=== PATIENT | male | born 1950 | race American Indian/Alaskan Native ===

== ENCOUNTER 2019-03-25 06:53 | Day surgery (SDC) | payer OTHER ==
[~2019-03-25 06:53] MED LIST: TETRACAINE 0.5% OS SCH
[2019-03-25] MEDS ORDERED: NACL 0.9% 500 ML 500 ML IV SCH (08:15)
[2019-03-25] MEDS: VIGAMOX OS SCH ×3 (08:20→08:30)
[2019-03-25] MEDS: AK-Dilate OS SCH ×3 (08:20→08:30)
[2019-03-25] MEDS: MYDRIACYL OS SCH ×3 (08:20→08:30)
--- NOTE | 2019-03-25 08:29 | Anesthesia Day of Surgery ---
Anesthesia Day of Surgery - Day of Surgery Patient Examined: Yes Patient H&P Reviewed: Yes Patient is NPO: Yes Beta Blockers: Yes
[2019-03-25] MEDS ORDERED: HumuLIN R IV ONE (08:30)
--- NOTE | 2019-03-25 08:30 | Anesthesia Consultation ---
Anesthesia Consult and Med Hx - Airway Anesthetic Teeth Evaluation: Poor (missing ) ROM Head & Neck: Adequate Mental/Hyoid Distance: Adequate Mallampati Class: Class III Intubation Access Assessment: Good - Pulmonary Exam CTA: Yes - Cardiac Exam Cardiac Exam: No Murmur - Pre-Operative Health Status ASA Pre-Surgery Classification: ASA3 Proposed Anesthetic Plan: MAC - Pulmonary Hx Smoking: Yes (SINCE AGE 23 SOCIALLY, QUIT 2009) COPD: Yes (RESCUE INHALER) - Cardiovascular System Hx Hypertension: Yes (1999) Hx Coronary Artery Disease: Yes (1999) Hx Angina: No Hx Percutaneous Transluminal Coronary Angioplasty (PTCA): Yes Hx Internal Defibrillator: Yes - Central Nervous System Hx Psychiatric Problems: Yes - Gastrointestinal Hx Gastroesophageal Reflux Disease: Yes - Endocrine Hx Non-Insulin Dependent Diabetes: Yes - Other Systems Hx Alcohol Use: No Hx Substance Use: No Hx Cancer: No Hx Obesity: Yes
[2019-03-25] MEDS ORDERED: HumuLIN R ONE (08:35)
[2019-03-25] MEDS ORDERED: VERSED ONE ×2 (09:06→09:07)
[2019-03-25] MEDS ORDERED: SUBLIMAZE ONE (09:06)
[2019-03-25] MEDS ORDERED: DIAMOX PO NR (09:55)
--- NOTE | 2019-03-25 09:56 | Operative Report ---
Operative Report Operative Report: PATIENT'S NAME: DATE OF : DATE OF SURGERY: 03/25/2019 PREOPERATIVE DIAGNOSIS: Cataract left eye POSTOPERATIVE DIAGNOSIS: Same OPERATIVE PROCEDURE: Phacoemulsification with intraocular lens implantation, left eye SURGEON: Claudia Garcia M.D. NUTRITION COUNSELOR SURGEON: Stella Lens: [id number] 20.0 D ANESTHESIA: Monitored anesthesia care in combination with topical and intracameral anesthesia because of the established specific risk of reflux, arrhythmias, or anxiety attacks associated with ocular manipulation, as well as the difficulty of the concrete products machine operator to manage such potentially catastrophic events while simultaneously attempting to complete the surgical procedure and was deemed necessary for the patient's safety to have an Outbound Sales Executive present during the procedure whenever possible. An Outbound Sales Executive was utilized to regulate the intravenous sedation of the patient so the patient was cooperative yet not asleep in order for the patient to successfully maintain fixation of the eye on the operating light of the microscope. COMPLICATIONS: No surgical complications No blood loss. ALLERGIES: Aspirin penicillin PROGNOSIS: Excellent INDICATIONS FOR SURGERY: The patient is undergoing surgery in the hopes of eliminating or improving these visual difficulties. PROCEDURE: After arriving at the surgery center, the patient was given topical anesthetic and dilating drops, as noted in the record. The patient was then taken into the operating room and given more anesthetic drops. The eyelids, lashes, and lid margins were scrubbed with Betadine solution, and the patient was draped. The Nurse Outbound Sales Executive administered IV sedation and monitored the patient during the procedure. The eye was then fixated with a 0.12, and a stab incision was made in the peripheral clear cornea into the anterior chamber. This was made on my left side. Viscoelastic was next used to fill the anterior chamber. The eye was once again fixated with the 0.12 forceps and a keratome was used make an incision in clear cornea peripherally on my right hand side temporally. The capsule forceps were used to open the central anterior capsule and then make a continuous round capsulotomy. Hydrodissection was carried out utilizing a cannula and balanced salt solution to delineate the cortical material from the capsule and the nucleus from the cortical material. The phaco tip was introduced into the eye and used to remove the anterior cortical material in the area of the capsulotomy. Then the phaco tip was buried into the nucleus, and a chopping instrument was introduced into the eye and used to provide countertraction in the nucleus between this instrument and the phaco tip fracturing the nucleus. This procedure was repeated multiple times, providing multiple small segments of the lens, and then the phaco tip was used to remove each of these segments. An I/A tip was then used to remove the remaining cortex. The anterior chamber was refilled with viscoelastic. An one-piece, acrylic intraocular lens was then placed into an inserting cartridge. The tip of the inserting cartridge was introduced into the keratome incision and into the anterior chamber. The implant was gently advanced through the cartridge and into the eye, where it unfolded, and both haptics were placed in the capsular bag, where it centered nicely and appeared to be well fixated. After placement of the intraocular lens, the I~and~A handpiece was placed back into the eye and used to remove the viscoelastic, including viscoelastic that was behind the optic of the intraocular lens. The anterior chamber was then filled with balanced salt solution, and hydration of the wound was used to cause swelling of the wound and more appropriate watertight closure. When the wound was found to be firm, the patient was asked to comment on how bright the light was. If there was no light perception at all or if the light was substantially dimmer than during the rest of the surgery, the amount of fluid in the eye was decompressed to lower the intraocular pressure until the patient could see the bright light again. This was done to avoid any damage or decreased blood flow to the optic nerve. MEDICATIONS APPLIED AT END OF SURGERY: One drop of Pred Forte and Vigamox The patient was given a shield to wear at night and was instructed not to rub or push on the eye. DISCHARGE SUMMARY: The patient was released in stable condition. The patient and those with the patient were given a written sheet of postoperative instructions and counseling on any abnormal laboratory studies. The patient is to see us tomorrow for follow-up in the office and is to call immediately for any difficulties. Claudia Garcia M.D. Date
--- NOTE | 2019-03-25 09:57 | Short Stay Summary ---
Short Stay Documentation Date of service: 03/25/19 - History H&P: obtained from office - Allergies and Medications Current Medications: Allergies aspirin Allergy (Verified 11/26/13 09:11) Itching Penicillins Allergy (Verified 11/26/13 07:08) Itching Home Medications Medication Instructions Recorded Confirmed Last Taken Type Albuterol Sulfate [Ventolin HFA] 2 inhalation INHALATION Q4H PRN #1 12/03/13 03/23/19 Unknown Rx hfa.aer.ad Lisinopril [Zestril TAB] 5 mg PO QDAY #30 tablet 12/03/13 03/23/19 Unknown Rx buPROPion [Wellbutrin] 75 mg PO BID #30 tablet 12/03/13 03/25/19 03/25/19 05:00 Rx Acetaminophen [Tylenol] 325 mg PO Q4H PRN 03/23/19 03/23/19 Unknown History Carvedilol [Coreg] 12.5 mg PO BID 03/23/19 03/25/19 03/25/19 05:00 History Furosemide [Lasix] 20 mg PO BID 03/23/19 03/25/19 03/24/19 22:00 History Gabapentin [Neurontin] 300 mg PO BID 03/23/19 03/23/19 Unknown History Multivit-Min/FA/Lycopen/Lutein 1 each PO DAILY 03/23/19 03/25/19 03/24/19 09:00 History [Centrum Silver Men Tablet] Ranitidine HCl [Zantac 150 MG TAB] 150 mg PO BID 03/23/19 03/25/19 03/25/19 05:00 History Spironolactone [Aldactone] 25 mg PO QDAY 03/23/19 03/25/19 03/24/19 09:00 History glipiZIDE [Glucotrol] 10 mg PO BID 03/23/19 03/25/19 03/24/19 17:00 History Active Medications Acetazolamide (Diamox) 500 mg PO ONCE ONE Stop: 03/25/19 09:56 Sodium Chloride (Nacl 0.9% 500 Ml) 500 mls @ 50 mls/hr IV DIRECT MARYSOL Moxifloxacin HCl (Vigamox) 1 drops OS Q5MIN MARYSOL Stop: 03/25/19 16:00 Last Admin: 03/25/19 08:30 Dose: 1 drops Documented by: Phenylephrine HCl (Ak-Dilate) 1 drops OS Q5MIN [facility] Stop: 03/25/19 16:00 Last Admin: 03/25/19 08:30 Dose: 1 drops Documented by: Prednisolone Acetate (Pred Forte 1%) 1 drops OS ONCE NR Tetracaine HCl (Tetracaine 0.5%) 1 drops OS Q5M [facility] Stop: 03/25/19 16:00 Last Admin: 03/25/19 08:20 Dose: 1 drops Documented by: Tropicamide (Mydriacyl) 1 drops OS Q5MIN [facility] Stop: 03/25/19 16:00 Last Admin: 03/25/19 08:30 Dose: 1 drops Documented by: - Brief post op/procedure progress note Date of procedure: 03/25/19 Pre-op diagnosis: left cataract Post-op diagnosis: same Procedure: Phacoemulsification with intraocular lens insertion left eye Anesthesia: MAC, local Surgeon: KD MCCLENDON Estimated blood loss: none Pathology: none Condition: stable - Disposition Condition at discharge: Good Disposition: DC-01 TO HOME OR SELFCARE - Discharge Diagnoses (1) Cortical age-related cataract of left eye Status: Resolved Short Stay Discharge Plan Follow up with: [facility] [Primary Care Provider] - 7 Days
[2019-03-25] MEDS ORDERED: PRED FORTE 1% OS NR (10:00)
[2019-03-25 10:56] VITALS: BP 126/81
== END 2019-03-25 10:56 | disposition home or self-care (01) ==
LOC: OR 06:53
DX: E11.36 Type 2 diabetes mellitus with diabetic cataract (principal); H25.012 Cortical age-related cataract, left eye; I11.0 Hypertensive heart disease with heart failure; I50.9 Heart failure, unspecified; I42.9 Cardiomyopathy, unspecified; E11.51 Type 2 diabetes mellitus with diabetic peripheral angiopathy without gangrene; I25.10 Atherosclerotic heart disease of native coronary artery without angina pectoris; E78.5 Hyperlipidemia, unspecified; J44.9 Chronic obstructive pulmonary disease, unspecified; K21.9 Gastro-esophageal reflux disease without esophagitis; M19.90 Unspecified osteoarthritis, unspecified site; Z80.1 Family history of malignant neoplasm of trachea, bronchus and lung; Z83.3 Family history of diabetes mellitus; Z88.6 Allergy status to analgesic agent; Z88.0 Allergy status to penicillin; Z79.899 Other long term (current) drug therapy; Z95.1 Presence of aortocoronary bypass graft; Z87.891 Personal history of nicotine dependence; Z82.49 Family history of ischemic heart disease and other diseases of the circulatory system
CPT/HCPCS: 66984; 82962; J2250; J1815; J3010; V2632

== ENCOUNTER 2019-05-06 06:48 | Day surgery (SDC) | payer OTHER ==
[2019-05-06] MEDS ORDERED: NACL 0.9% 1000 ML 1,000 ML IV SCH (07:00)
--- NOTE | 2019-05-06 08:51 | Anesthesia Consultation ---
Anesthesia Consult and Med Hx Date of service: 05/06/19 - Airway Anesthetic Teeth Evaluation: Poor ROM Head & Neck: Adequate Mental/Hyoid Distance: Adequate Mallampati Class: Class II Intubation Access Assessment: Probably Good - Pulmonary Exam CTA: Yes - Cardiac Exam Cardiac Exam: RRR - Pre-Operative Health Status ASA Pre-Surgery Classification: ASA4 Proposed Anesthetic Plan: MAC - Pulmonary Hx Smoking: Yes (LIGHTLY SINCE AGE 23; QUIT 2009) Hx Asthma: Yes COPD: Yes Hx Pneumonia: Yes - Cardiovascular System Hx Hypertension: Yes Hx Coronary Artery Disease: Yes Hx Percutaneous Transluminal Coronary Angioplasty (PTCA): Yes Hx Pacemaker: Yes Hx Internal Defibrillator: Yes - Gastrointestinal Hx Gastroesophageal Reflux Disease: Yes - Endocrine Hx Non-Insulin Dependent Diabetes: Yes - Other Systems Hx Substance Use: No Hx Obesity: Yes
--- NOTE | 2019-05-06 08:52 | Anesthesia Day of Surgery ---
Anesthesia Day of Surgery - Day of Surgery Patient Examined: Yes Patient H&P Reviewed: Yes Patient is NPO: Yes Beta Blockers: Yes Cardiac Clearance: Yes
[2019-05-06] MEDS ORDERED: HumuLIN R SUB-Q ONE (09:00)
[2019-05-06] MEDS ORDERED: VERSED IV ONE (09:02)
[2019-05-06] MEDS ORDERED: DIPRIVAN 10 MG/ML IV ONE (09:02)
[2019-05-06] MEDS ORDERED: KETALAR ONE (09:02)
[2019-05-06] MEDS ORDERED: WATER FOR IRRIG STERILE IR ONE (09:13)
--- NOTE | 2019-05-06 10:09 | Short Stay Summary ---
Short Stay Documentation - Allergies and Medications Current Medications: Allergies aspirin Allergy (Mild, Verified 05/05/19 11:09) Rash Penicillins Allergy (Mild, Verified 05/05/19 11:09) Rash Home Medications Medication Instructions Recorded Confirmed Last Taken Type Albuterol Sulfate [Ventolin HFA] 2 inhalation INHALATION Q4H PRN #1 12/03/13 05/05/19 Unknown Rx hfa.aer.ad buPROPion [Wellbutrin] 75 mg PO BID #30 tablet 12/03/13 05/05/19 05/05/19 Rx Acetaminophen [Tylenol] 325 mg PO Q4H PRN 03/23/19 05/05/19 Unknown History Carvedilol [Coreg] 12.5 mg PO BID 03/23/19 05/05/19 05/05/19 History Furosemide [Lasix] 20 mg PO DAILY 03/23/19 05/05/19 05/05/19 History Gabapentin [Neurontin] 300 mg PO PRN PRN 03/23/19 05/05/19 04/05/19 08:00 History Multivit-Min/FA/Lycopen/Lutein 1 each PO DAILY 03/23/19 05/05/19 05/05/19 History [Centrum Silver Men Tablet] Ranitidine HCl [Zantac 150 MG TAB] 150 mg PO BID 03/23/19 05/05/19 05/05/19 History Spironolactone [Aldactone] 50 mg PO QDAY 03/23/19 05/05/19 05/05/19 History glipiZIDE [Glucotrol] 20 mg PO BID 03/23/19 05/05/19 05/05/19 History Atorvastatin 20 mg PO DAILY 05/05/19 05/05/19 05/05/19 History Furosemide 10 mg PO HS 05/05/19 05/05/19 Unknown History Lisinopril [Zestril TAB] 20 mg PO QDAY 05/05/19 05/05/19 05/05/19 History Plavix 75 mg PO DAILY 05/05/19 05/05/19 Unknown History Viagra 100 mg PO PRN PRN 05/05/19 05/05/19 Unknown History Active Medications Sodium Chloride (Nacl 0.9% 1000 Ml) 1,000 mls @ 50 mls/hr IV DIRECT MARYSOL Last Admin: 05/06/19 07:58 Dose: 50 mls/hr Documented by: - Brief post op/procedure progress note Date of procedure: 05/06/19 Pre-op diagnosis: Colon cancer screening Post-op diagnosis: same (1. Colon polyps 2. Internal hemorrhoids) Procedure: Colonoscopy with snare polypectomy and cold biopsy polypectomy Anesthesia: MAC Findings: as above Surgeon: JEET NASH Estimated blood loss: none Pathology: list (1. Mid transverse colon polyp 2. Proximal sigmoid polyps 3. Distal sigmoid polyp 4. Rectal polyps) Specimen disposition: to lab Condition: stable - Disposition Condition at discharge: Stable Disposition: DC-01 TO HOME OR SELFCARE Short Stay Discharge Plan Activity: no restrictions Weight Bearing Status: Full Weight Bearing Diet: regular, low salt Follow up with: [facility] [Primary Care Provider] - 7 Days
[2019-05-06 10:33] VITALS: BP 146/85
== END 2019-05-06 06:49 | disposition home or self-care (01) ==
LOC: GIO 06:48
PROVIDERS: ATTEND Internal Medicine Gastroenterology
DX: Z12.11 Encounter for screening for malignant neoplasm of colon (principal); D12.3 Benign neoplasm of transverse colon; K62.1 Rectal polyp; K63.5 Polyp of colon; K64.8 Other hemorrhoids; E11.51 Type 2 diabetes mellitus with diabetic peripheral angiopathy without gangrene; I11.0 Hypertensive heart disease with heart failure; I50.9 Heart failure, unspecified; I42.9 Cardiomyopathy, unspecified; E78.00 Pure hypercholesterolemia, unspecified; E78.5 Hyperlipidemia, unspecified; J44.9 Chronic obstructive pulmonary disease, unspecified; K21.9 Gastro-esophageal reflux disease without esophagitis; E66.9 Obesity, unspecified; M19.90 Unspecified osteoarthritis, unspecified site; Z88.0 Allergy status to penicillin; Z88.6 Allergy status to analgesic agent; Z79.899 Other long term (current) drug therapy; Z98.42 Cataract extraction status, left eye; Z95.0 Presence of cardiac pacemaker; Z68.34 Body mass index [BMI] 34.0-34.9, adult; Z83.3 Family history of diabetes mellitus; Z80.1 Family history of malignant neoplasm of trachea, bronchus and lung; Z82.49 Family history of ischemic heart disease and other diseases of the circulatory system
CPT/HCPCS: 45380; 45385; 82962; 88305; J2250; J2704; J7030; J1815